=== PATIENT | female | born 1960 | race Caucasian/White ===

== ENCOUNTER → 2017-08-06 | Outpatient (CLI) | payer BC ==
[~2017-08-06] MED LIST: BENICAR; BENICAR40 MG PO; CEFTIN 250250 MG/TAB PO; FLEXERIL10 MG PO; LEVOTHYROXINE0.1 MG PO; MOTRIN 600600 MG/TAB PO; PERCOCET 325 MG1 TA2 PO; PERCOCET 5/321 UDTAB PO; SYNTHROID0.075 MG/T PO; SYNTHROID0.088 MG/T PO; SYNTHROID0.1 MG/TAB PO
== END ==
LOC: MC.RAD 08-03 14:40
DX: Z12.31 Encounter for screening mammogram for malignant neoplasm of breast (principal)

== ENCOUNTER 2018-03-18 09:05 | Day surgery (SDC) | payer BC ==
[~2018-03-18] VITALS: Ht 167.6 cm; Wt 83.5 kg
[2018-03-18 10:14] VITALS: BP 127/80; PULSE 75; TEMP 97.9
[2018-03-18] MEDS ORDERED: TIROSINT112 MC1 PO (10:45)
[2018-03-18] MEDS ORDERED: BENICAR HCT 12.1 TA1 PO (10:46)
[2018-03-18] MEDS ORDERED: CLARITIN 1010 MG/TAB PO (10:46)
[2018-03-18 13:05] VITALS: BP 112/70; PULSE 81; TEMP 97.6
[2018-03-18 13:20] VITALS: BP 107/79; PULSE 81
[2018-03-18 13:35] VITALS: BP 117/78; PULSE 77
== END 2018-03-18 13:58 | disposition home or self-care (01) ==
LOC: SDCO 09:05
DX: Z12.11 Encounter for screening for malignant neoplasm of colon (principal); K57.30 Diverticulosis of large intestine without perforation or abscess without bleeding; I10 Essential (primary) hypertension; E78.00 Pure hypercholesterolemia, unspecified; Z90.710 Acquired absence of both cervix and uterus; Z83.71 Family history of colonic polyps; Z88.8 Allergy status to other drugs, medicaments and biological substances
CPT/HCPCS: J2250; J3010; J7030

== ENCOUNTER → 2018-10-28 | Outpatient (CLI) | payer BC ==
[~2018-10-28] MED LIST changes: +BENICAR HCT 12.1 TA1 PO; +CLARITIN 1010 MG/TAB PO; +TIROSINT112 MC1 PO
== END ==
LOC: MC.RAD 07:41
DX: Z12.31 Encounter for screening mammogram for malignant neoplasm of breast (principal)

== ENCOUNTER 2019-02-24 20:23 | Emergency (ER) | payer BC ==
[~2019-02-24] VITALS: Ht 167.6 cm; Wt 84.1 kg
[2019-02-24 20:30] VITALS: BP 158/82; PULSE 86; TEMP 97.1
[2019-02-25] MEDS ORDERED: NAPROSYN500 MG PO (09:27)
== END 2019-02-24 21:33 | disposition left against medical advice (07) ==
LOC: COL.ER 20:23
DX: M25.561 Pain in right knee (principal)

== ENCOUNTER 2019-02-25 08:21 | Emergency (ER) | payer BC ==
[~2019-02-25] VITALS: Ht 167.6 cm; Wt 84.1 kg
[2019-02-25 08:26] VITALS: TEMP 97.9
[2019-02-25 08:57] LABS: BASO % 0.2 % (0.0-2.0); EOS # 0.2 (0.0-0.7); EOS % 2.9 % (0-4.0); GRAN # 5.3 (1.4-6.5); GRAN % 64.6 % (42.2-75.2); HEMATOCRIT 38.6 % (37.0-47.0); HEMOGLOBIN 12.8 g/dl (12.5-16.0); LYMPH % 24.5 % (20.0-51.0); MEAN CELL VOLUME 92 fl (80.0-100.0); MEAN CORPUSCULAR HEMOGLOBIN 31 pg (27.0-31.0); MEAN CORPUSCULAR HGB CONC 33 g/dl (33.0-37.0); MEAN PLATELET VOLUME 9.7 fl (7.4-10.4); MONO # 0.6 (0.1-0.6); MONO % 7.3 % (1.7-9.3); PLATELET COUNT 317 K/mm3 (130-400); RED BLOOD COUNT 4.19 M/mm3 (4.10-5.30); REDCELL DISTRIBUTION WIDTH-CV 12.4 % (11.5-14.5)
[2019-02-25 09:13] LABS: C-REACTIVE PROTEIN 0.9 mg/dL (0.0-0.9); URIC ACID 5.7 mg/dL (2.5-6.2)
[2019-02-25 09:22] LABS: ERYTHROCYTE SEDIMENTATION RATE 19 mm/hr (0-30)
[2019-02-25] MEDS ORDERED: NAPROSYN500 MG PO (09:27)
[2019-02-25 09:35] VITALS: BP 141/86; PULSE 78
== END 2019-02-25 09:40 | disposition home or self-care (01) ==
LOC: COL.ER 08:21
PROVIDERS: Physician Assistant
DX: M25.561 Pain in right knee (principal); I10 Essential (primary) hypertension; E03.9 Hypothyroidism, unspecified; Z90.710 Acquired absence of both cervix and uterus

== ENCOUNTER → 2019-07-21 | Outpatient (CLI) | payer BC ==
[~2019-07-21] MED LIST changes: +NAPROSYN500 MG PO
== END ==
LOC: COL.VAS 10:29
DX: R07.9 Chest pain, unspecified (principal)

== ENCOUNTER → 2019-08-03 | Outpatient (CLI) | payer BC ==
[~2019-08-03] VITALS: Ht 167.6 cm; Wt 85.1 kg
[~2019-08-03] MED LIST changes: +D3-5050000 IU PO
[2019-08-03 09:08] VITALS: BP 142/93; PULSE 78
[2019-08-03 10:38] VITALS: BP 148/85; PULSE 115
[2019-08-03 10:39] VITALS: BP 158/80; PULSE 106
[2019-08-03 10:40] VITALS: BP 159/86; PULSE 102
[2019-08-03 10:41] VITALS: BP 147/87; PULSE 97
== END ==
LOC: COL.CARD 07-28 09:15
DX: R07.9 Chest pain, unspecified (principal)
CPT/HCPCS: A9500; J2785

== ENCOUNTER → 2020-12-20 | Outpatient (CLI) | payer BC | LOC: MC.RAD 09:27 | DX: Z12.31 Encounter for screening mammogram for malignant neoplasm of breast (principal) ==

== ENCOUNTER → 2023-04-15 | Outpatient (CLI) | payer BC ==
[~2023-04-15] MED LIST changes: +SYNTHROID0.1 MG/TAB
== END ==
LOC: CANSCHCLI → MC.RAD 16:17
DX: Z12.31 Encounter for screening mammogram for malignant neoplasm of breast (principal)